=== PATIENT | male | born 1940 | race Caucasian/White ===

== ENCOUNTER 2020-05-28 21:29 | Emergency (ER) | payer MEDICARE ==
[~2020-05-28] VITALS: Ht 188 cm; Wt 123.8 kg
[~2020-05-28 21:29] MED LIST: ALLERGY10 M1; ALPRAZOLAM0.5 MG PO; BENZONATATE100 MG PO; CALCIUM600 MG; D3 + K2 DOTS 11 EACH; DILTIAZEM HCL60 MG PO; FAMOTIDINE20 MG PO; FINASTERIDE5 MG PO; FUROSEMIDE40 MG PO; NOVOLIN 70100 UNITS/; OXYBUTYNIN CHLOR5 MG PO; POTASSIUM CHLO20 ME1 PO; POTASSIUM99 M1; PRAVASTATIN SOD40 MG; WARFARIN SODIUM5 MG
--- NOTE | 2020-05-28 21:35 | Emergency Department Note ---
History of Present Illnes History of Present Illness History of Present Illness This is a 80 year old male presents to the ED 3 day h/o of lower abd pain with tactile fevers at home. . Historian: Patient Onset (how long ago): day(s) Severity: moderate Onset quality: gradual Duration (how long): day(s) (3) Timing of current episode: constant Progression: unchanged Chronicity: new Relieving factors: none Exacerbating factors: none Associated symptoms: Reports fever/chills Treatments prior to arrival: none Past Medical/Family History Physician Review I have reviewed the patient's past medical and family history. Any updates have been documented here. Past Medical History Recent Fever: No Clinical Suspicion of Infectio: No New/Unexplained Change in Ment: No Other Medical History: morbid obesity Social History Smoking Cessation: Never Smoker Alcohol Use: None Any Illegal Drug Use: No Review of Systems Review of Systems Constitutional: Reports weakness EENTM: Reports no symptoms Cardiovascular: Reports no symptoms Respiratory: Reports no symptoms Gastrointestinal: Reports abdominal pain, Reports nausea Genitourinary: Reports no symptoms Musculoskeletal: Reports no symptoms Integumentary: Reports no symptoms Neurological: Reports no symptoms Psychological: Reports no symptoms Endocrine: Reports no symptoms Hematological/Lymphatic: Reports no symptoms Physical Exam Related Data Allergies: Coded Allergies: lidocaine (Verified Allergy, Mild, STOP BREATHING, 09/24/09) loperamide (Verified Allergy, Mild, SEVERE ABD PAIN, 09/24/09) Uncoded Allergies: chlorinated water (Allergy, Unknown, 05/28/20) Triage Vital Signs Vital Signs Date Time Temp Pulse Resp B/P (MAP) Pulse Ox O2 Delivery O2 Flow Rate FiO2 05/28/20 22:38 99.1 89 19 110/57 97 Room Air Vital signs reviewed: Yes Physical Exam CONSTITUTIONAL Constitutional: Present morbidly obese HENT HENT: Present normocephalic, Present atraumatic, Present oropharynx clear/moist, Present nose normal HENT L/R: Present left ext ear normal, Present right ext ear normal EYES Eyes: Reports PERRL, Reports conjunctivae normal NECK Neck: Present ROM normal PULMONARY Pulmonary: Present effort normal, Present breath sounds normal CARDIOVASCULAR Cardiovascular: Present irregular rhythm, Present heart sounds normal, Present capillary refill normal, Present normal rate, Present LLE edema, Present RLE edema GASTROINTESTINAL Abdominal: Present soft, Present distension, Present tender GENITOURINARY Genitourinary: Present exam deferred SKIN Skin: Present warm, Present dry MUSCULOSKELETAL Musculoskeletal: Present ROM normal NEUROLOGICAL Neurological: Present alert, Present oriented x 3, Present no gross motor or sensory deficits PSYCHOLOGICAL Psychological: Present mood/affect normal, Present judgement normal Results Laboratory Laboratory Laboratory Tests Test 05/28/20 23:28 05/28/20 22:40 Urine Color Yellow (YELLOW) Urine Clarity Clear (CLEAR) Urine pH 7 (5 - 7) Urine Specific [place] 1.015 (1.010-1.025) Urine Protein 1+ (NEGATIVE) Urine Glucose (UA) 2+ (NEGATIVE) Urine Ketones Negative (NEGATIVE) Urine Blood Negative (NEGATIVE) Urine Nitrite Negative (NEGATIVE) Urine Bilirubin Negative (NEGATIVE) Urine Urobilinogen 1 mg/dL (0.2 - 1) Urine Leukocyte Esterase Negative (NEGATIVE) Urine RBC 0-5 /HPF (0-5) Urine WBC 0-5 /HPF (0-5) Urine Epithelial Cells Few /LPF (NONE) Urine Bacteria Few /HPF (NONE) White Blood Count 13.51 x10e3/uL (4.8-10.8) Red Blood Count 3.41 x10e6/uL (4.3-5.7) Hemoglobin 10.8 g/dL (14.0-18.0) Hematocrit 32.4 % (38.2-49.6) Mean Corpuscular Volume 95.0 fL (81-99) Mean Corpuscular Hemoglobin 31.7 pg (28-32) Mean Corpuscular Hemoglobin Concent 33.3 g/dL (31-35) Red Cell Distribution Width 12.7 % (11.7-14.4) Platelet Count 243 x10e3/uL (140-360) Neutrophils (%) (Auto) 78.8 % (38.7-80.0) Lymphocytes (%) (Auto) 11.4 % (18.0-39.1) Monocytes (%) (Auto) 8.1 % (4.4-11.3) Eosinophils (%) (Auto) 0.7 % (0.0-6.0) Basophils (%) (Auto) 0.3 % (0.0-1.0) Neutrophils # (Auto) 10.7 (2.1-6.9) Lymphocytes # (Auto) 1.5 (1.0-3.2) Monocytes # (Auto) 1.1 (0.2-0.8) Eosinophils # (Auto) 0.1 (0.0-0.4) Basophils # (Auto) 0.0 (0.0-0.1) Absolute Immature Granulocyte (auto 0.09 x10e3/uL (0-0.1) Sodium Level 133 mmol/L (136-145) Potassium Level 4.1 mmol/L (3.5-5.1) Chloride Level 100 mmol/L (98-107) Carbon Dioxide Level 23 mmol/L (22-29) Anion Gap 14.1 mmol/L (8-16) Blood Urea Nitrogen 23 mg/dL (7-26) Creatinine 2.17 mg/dL (0.72-1.25) Estimat Glomerular Filtration Rate 30 ML/MIN (60-) BUN/Creatinine Ratio 11 (6-25) Glucose Level 179 mg/dL (74-118) Calcium Level 8.7 mg/dL (8.4-10.2) Total Bilirubin 0.6 mg/dL (0.2-1.2) Aspartate Amino Transf (AST/SGOT) 20 IU/L (5-34) Alanine Aminotransferase (ALT/SGPT) 13 IU/L (0-55) Alkaline Phosphatase 48 IU/L (40-150) Creatine Kinase 122 IU/L (30-200) Creatine Kinase MB 2.30 ng/mL (0-5.0) Troponin I 0.013 ng/mL (0-0.300) B-Type Natriuretic Peptide 98.2 pg/mL (0-100) Total Protein 7.5 g/dL (6.5-8.1) Albumin 3.7 g/dL (3.5-5.0) Globulin 3.8 g/dL (2.3-3.5) Albumin/Globulin Ratio 1.0 (0.8-2.0) Lipase 13 U/L (8-78) Laboratory comments Laboratory Tests Test 05/28/20 23:28 05/28/20 22:40 Urine Color Yellow (YELLOW) Urine Clarity Clear (CLEAR) Urine pH 7 (5 - 7) Urine Specific [place] 1.015 (1.010-1.025) Urine Protein 1+ (NEGATIVE) Urine Glucose (UA) 2+ (NEGATIVE) Urine Ketones Negative (NEGATIVE) Urine Blood Negative (NEGATIVE) Urine Nitrite Negative (NEGATIVE) Urine Bilirubin Negative (NEGATIVE) Urine Urobilinogen 1 mg/dL (0.2 - 1) Urine Leukocyte Esterase Negative (NEGATIVE) Urine RBC 0-5 /HPF (0-5) Urine WBC 0-5 /HPF (0-5) Urine Epithelial Cells Few /LPF (NONE) Urine Bacteria Few /HPF (NONE) White Blood Count 13.51 x10e3/uL (4.8-10.8) Red Blood Count 3.41 x10e6/uL (4.3-5.7) Hemoglobin 10.8 g/dL (14.0-18.0) Hematocrit 32.4 % (38.2-49.6) Mean Corpuscular Volume 95.0 fL (81-99) Mean Corpuscular Hemoglobin 31.7 pg (28-32) Mean Corpuscular Hemoglobin Concent 33.3 g/dL (31-35) Red Cell Distribution Width 12.7 % (11.7-14.4) Platelet Count 243 x10e3/uL (140-360) Neutrophils (%) (Auto) 78.8 % (38.7-80.0) Lymphocytes (%) (Auto) 11.4 % (18.0-39.1) Monocytes (%) (Auto) 8.1 % (4.4-11.3) Eosinophils (%) (Auto) 0.7 % (0.0-6.0) Basophils (%) (Auto) 0.3 % (0.0-1.0) Neutrophils # (Auto) 10.7 (2.1-6.9) Lymphocytes # (Auto) 1.5 (1.0-3.2) Monocytes # (Auto) 1.1 (0.2-0.8) Eosinophils # (Auto) 0.1 (0.0-0.4) Basophils # (Auto) 0.0 (0.0-0.1) Absolute Immature Granulocyte (auto 0.09 x10e3/uL (0-0.1) Sodium Level 133 mmol/L (136-145) Potassium Level 4.1 mmol/L (3.5-5.1) Chloride Level 100 mmol/L (98-107) Carbon Dioxide Level 23 mmol/L (22-29) Anion Gap 14.1 mmol/L (8-16) Blood Urea Nitrogen 23 mg/dL (7-26) Creatinine 2.17 mg/dL (0.72-1.25) Estimat Glomerular Filtration Rate 30 ML/MIN (60-) BUN/Creatinine Ratio 11 (6-25) Glucose Level 179 mg/dL (74-118) Calcium Level 8.7 mg/dL (8.4-10.2) Total Bilirubin 0.6 mg/dL (0.2-1.2) Aspartate Amino Transf (AST/SGOT) 20 IU/L (5-34) Alanine Aminotransferase (ALT/SGPT) 13 IU/L (0-55) Alkaline Phosphatase 48 IU/L (40-150) Creatine Kinase 122 IU/L (30-200) Creatine Kinase MB 2.30 ng/mL (0-5.0) Troponin I 0.013 ng/mL (0-0.300) B-Type Natriuretic Peptide 98.2 pg/mL (0-100) Total Protein 7.5 g/dL (6.5-8.1) Albumin 3.7 g/dL (3.5-5.0) Globulin 3.8 g/dL (2.3-3.5) Albumin/Globulin Ratio 1.0 (0.8-2.0) Lipase 13 U/L (8-78) Imaging Imaging results reviewed: Yes Impressions [place] [id number] Patient Name: NIKITA CHRISTIANSON V MR #: [id number] : 1940 Age/Sex: 80/M Req #: [id number] Adm Physician: Ordered by: RINA HERNANDEZ DO Report #: [id number] Location: ER Room/Bed: Procedure: [id number] CT/CT ABDOMEN/PELVIS WO Exam Date: 05/28/20 Exam Time: 2340 REPORT STATUS: Signed EXAM: CT Abdomen and Pelvis WITHOUT contrast INDICATION: ^abd distension and lower abd pain. H/O of breast CA ^[id number] ^2339 COMPARISON: None. TECHNIQUE: Abdomen and pelvis were scanned utilizing a multidetector helical scanner from the lung base to the pubic symphysis without administration of IV contrast. Absence of intravenous contrast decreases sensitivity for detection of focal lesions and vascular pathology. Coronal and sagittal reformations were obtained. Routine protocol was performed. IV CONTRAST: None ORAL CONTRAST: Gastroview COMPLICATIONS: None RADIATION DOSE: Total DLP: 842.22 mGy*cm Estimated effective dose: (DLP x 0.015 x size factor) mSv CTDIvol has been reviewed. It is below the limits set by the Radiation Protocol Committee (RPC). FINDINGS: LINES and TUBES: None. LOWER THORAX: Partially seen atherosclerotic calcification of coronary arteries with possible stents. Mild bibasilar subsegmental atelectasis. HEPATOBILIARY: Unenhanced liver is unremarkable. No biliary ductal dilation. GALLBLADDER: No radio-opaque stones or sludge. No wall thickening. SPLEEN: No splenomegaly. PANCREAS: No focal masses or ductal dilatation. ADRENALS: No adrenal nodules KIDNEYS/URETERS: Atrophic kidneys with perinephric fat stranding. No hydronephrosis. Limited for evaluation of renal parenchyma without intravenous contrast. No stones. GI TRACT: No abnormal distention, wall thickening, or evidence of bowel obstruction. There are diverticula within the colon without evidence of diverticulitis. Appendix is not visualized. PELVIC ORGANS/BLADDER: Unremarkable. LYMPH NODES: No lymphadenopathy. VESSELS: Unremarkable. PERITONEUM / RETROPERITONEUM: No free air or fluid. BONES: Posterior right ninth rib old fracture deformity. Posterior right 10th rib sclerotic focus, likely a bone island. L5 pars defects with grade 2, L5-S1 spondylolisthesis. Severe degenerative changes of lumbar spine. SOFT TISSUES: Unremarkable. IMPRESSION: 1. No definite evidence of acute inflammatory process in the abdomen/pelvis, considering limitations of unenhanced study. 2. Sigmoid diverticulosis without evidence of diverticulitis. Signed by: Dr. Facundo Gonzalez MD on 05/29/2020 12:41 AM Dictated By: FACUNDO GONZALEZ MD Transcribed By: CARLEE on 09/24/20 0041 COPY TO: RINA HERNANDEZ DO~ Procedures 12 Lead ECG Interpretation ECG Interpretation : ECG: ECG 1 Mate Ship: Interpreted by ED physician Prior ECG tracings: reviewed Rhythm: atrial fibrillation Rate: normal (93) BPM: 93 QRS axis: normal ST segments normal: Yes Q waves: aVR, V1, V2 Clinical Impression: non-specific ECG Assessment & Plan Medical Decision Making MDM 80 yom with lower abd pain . CBC, CMP, and CTS of abd/pelvis ordered to evaluate for abdominal abscess, appendicitis, biliary pathology, pancreatitis, perforated viscus. Assessment & Plan Final Impression: (1) Abdominal pain Depart Disposition: HOME, SELF-sen[facility] living Meds Reported Medications Potassium Chloride (POTASSIUM CHLORIDE) 20 Meq Tab.er.prt, 20 MEQ PO DAILY 08/14/15 Potassium Gluconate (POTASSIUM) 99 Mg Tablet 08/08/15 Calcium Carbonate (CALCIUM) 600 Mg Tablet 08/08/15 Pravastatin Sodium (PRAVASTATIN SODIUM) 40 Mg Tablet 08/08/15 Benzonatate (BENZONATATE) 100 Mg Capsule, 100 MG PO TID, CAP 08/08/15 Furosemide (FUROSEMIDE) 40 Mg Tablet, 40 MG PO BID, #60 TAB 08/08/15 Oxybutynin Chloride (OXYBUTYNIN CHLORIDE) 5 Mg Tablet, 5 MG PO TID, #30 TAB 08/08/15 Vitamin D3/Menaquinone 7 (D3 + K2 DOTS 1,000 UNITS TAB) 1 Each Tab.rapdis 08/08/15 Insulin Human Isophan/Regular (NOVOLIN 70-30 100 UNIT/ML VIAL) 100 Units/Ml Ml 08/08/15 Warfarin Sodium (COUMADIN) 5 Mg Tablet 08/08/15 Loratadine (ALLERGY) 10 Mg Tablet 08/08/15 Alprazolam (ALPRAZOLAM) 0.5 Mg Tablet, 0.5 MG PO BID, TAB 08/08/15 Famotidine (FAMOTIDINE) 20 Mg Tab, 20 MG PO DAILY, #30 TAB 08/08/15 Finasteride (FINASTERIDE) 5 Mg Tablet, 5 MG PO DAILY, #30 TAB 08/08/15 Diltiazem Hcl (DILTIAZEM HCL) 60 Mg Tablet, 60 MG PO DAILY, #30 TAB 08/08/15 RINA HERNANDEZ DO May 28, 2020 21:35
[2020-05-28] MEDS ORDERED: MORPHINE SULFATE INJ 4 MG/ML INJ 1ML IV STA (22:37)
[2020-05-28] MEDS ORDERED: ONDANSETRON HCL INJ 2MG/ML 2ML 2 MG/ML VIAL IV STA (22:37)
[2020-05-28] MEDS ORDERED: SODIUM CHLORIDE 0.9% 1000ML 1,000 ML IV STA (22:37)
[2020-05-28] MEDS ORDERED: DIATRIZOATE MEGL/DIATRIZOA SOD 30 ML BTL PO ONE (22:45)
[2020-05-28 22:52] LABS: BASOPHILS % 0.3 % (0.0-1.0); EOSINOPHILS # (AUTO) 0.1 (0.0-0.4); EOSINOPHILS % 0.7 % (0.0-6.0); HEMATOCRIT 32.4 % (38.2-49.6); HEMOGLOBIN 10.8 g/dL (14.0-18.0); LYMPHOCYTES # (AUTO) 1.5 (1.0-3.2); LYMPHOCYTES % 11.4 % (18.0-39.1); MEAN CORPUSCULAR HEMOGLOBIN 31.7 pg (28-32); MEAN CORPUSCULAR HGB CONC 33.3 g/dL (31-35); MONOCYTES # (AUTO) 1.1 (0.2-0.8); MONOCYTES % 8.1 % (4.4-11.3); NEUTROPHILS # (AUTO) 10.7 (2.1-6.9); NEUTROPHILS % 78.8 % (38.7-80.0); PLATELET COUNT 243 x10e3/uL (140-360); RED BLOOD COUNT 3.41 x10e6/uL (4.3-5.7); RED CELL DISTRIBUTION WIDTH 12.7 % (11.7-14.4)
[2020-05-28 23:11] LABS: ALBUMIN 3.7 g/dL (3.5-5.0); ANION GAP 14.1 mmol/L (8-16); CALCIUM 8.7 mg/dL (8.4-10.2); CREATININE, SERUM 2.17 mg/dL (0.72-1.25); POTASSIUM 4.1 mmol/L (3.5-5.1)
[2020-05-28 23:17] LABS: CREATINE KINASE MB 2.3 ng/mL (0-5.0)
[2020-05-28 23:49] LABS: BILIRUBIN,URINE NEGATIVE (NEGATIVE); CLARITY,URINE CLEAR (CLEAR); COLOR,URINE YELLOW (YELLOW); KETONES,URINE NEGATIVE (NEGATIVE); LEUKOCYTE ESTERASE ,URINE NEGATIVE (NEGATIVE); NITRITE,URINE NEGATIVE (NEGATIVE); PROTEIN,URINE DIPSTICK 1+ (NEGATIVE); URINE UROBILINOGEN 1 mg/dL (0.2 - 1)
[2020-05-28 23:56] LABS: BACTERIA,URINE FEW /HPF; EPITHELIAL CELLS,URINE FEW /LPF; RBC,URINE 0-5 /HPF (0-5); WBC,URINE (MAN) 0-5 /HPF (0-5)
--- NOTE | 2020-05-29 00:45 | Diagnostic Imaging Report ---
EXAM: CT Abdomen and Pelvis WITHOUT contrast INDICATION: ^abd distension and lower abd pain. H/O of breast CA ^[id number] ^2340 COMPARISON: None. TECHNIQUE: Abdomen and pelvis were scanned utilizing a multidetector helical scanner from the lung base to the pubic symphysis without administration of IV contrast. Absence of intravenous contrast decreases sensitivity for detection of focal lesions and vascular pathology. Coronal and sagittal reformations were obtained. Routine protocol was performed. IV CONTRAST: None ORAL CONTRAST: Gastroview COMPLICATIONS: None RADIATION DOSE: Total DLP: 842.22 mGy*cm Estimated effective dose: (DLP x 0.015 x size factor) mSv CTDIvol has been reviewed. It is below the limits set by the Radiation Protocol Committee (RPC). FINDINGS: LINES and TUBES: None. LOWER THORAX: Partially seen atherosclerotic calcification of coronary arteries with possible stents. Mild bibasilar subsegmental atelectasis. HEPATOBILIARY: Unenhanced liver is unremarkable. No biliary ductal dilation. GALLBLADDER: No radio-opaque stones or sludge. No wall thickening. SPLEEN: No splenomegaly. PANCREAS: No focal masses or ductal dilatation. ADRENALS: No adrenal nodules KIDNEYS/URETERS: Atrophic kidneys with perinephric fat stranding. No hydronephrosis. Limited for evaluation of renal parenchyma without intravenous contrast. No stones. GI TRACT: No abnormal distention, wall thickening, or evidence of bowel obstruction. There are diverticula within the colon without evidence of diverticulitis. Appendix is not visualized. PELVIC ORGANS/BLADDER: Unremarkable. LYMPH NODES: No lymphadenopathy. VESSELS: Unremarkable. PERITONEUM / RETROPERITONEUM: No free air or fluid. BONES: Posterior right ninth rib old fracture deformity. Posterior right 10th rib sclerotic focus, likely a bone island. L5 pars defects with grade 2, L5-S1 spondylolisthesis. Severe degenerative changes of lumbar spine. SOFT TISSUES: Unremarkable. IMPRESSION: 1. No definite evidence of acute inflammatory process in the abdomen/pelvis, considering limitations of unenhanced study. 2. Sigmoid diverticulosis without evidence of diverticulitis. Signed by: Dr. Facundo Gonzalez MD on 05/29/2020 12:41 AM
[2020-05-29 01:18] VITALS: BP 100/46
== END 2020-05-29 01:48 | disposition home or self-care (01) ==
LOC: ER 22:50
DX: R10.30 Lower abdominal pain, unspecified (principal); E66.01 Morbid (severe) obesity due to excess calories; Z11.59 Encounter for screening for other viral diseases
CPT/HCPCS: 36415; 74176; 80053; 81001; 82550; 82553; 83690; 83880; 84484; 85025; 93005; 99284; J2405; J7030; U0002; J2270

== ENCOUNTER 2020-11-28 12:17 | Emergency (ER) | payer MEDICARE ==
[~2020-11-28] VITALS: Ht 188 cm; Wt 136.1 kg
[2020-11-28] MEDS ORDERED: LORAZEPAM INJ 2 MG/ML VIAL IM ONE (13:00)
== END 2020-11-28 13:31 | disposition home or self-care (01) ==
LOC: ER 12:27
DX: F41.9 Anxiety disorder, unspecified (principal); I12.0 Hypertensive chronic kidney disease with stage 5 chronic kidney disease or end stage renal disease; N18.6 End stage renal disease; I50.9 Heart failure, unspecified; E66.01 Morbid (severe) obesity due to excess calories
CPT/HCPCS: 99283; J2060